=== PATIENT | male | born 1970 ===

== ENCOUNTER 2022-05-01 06:46 | Day surgery (SDC) | payer OTHER | END 2022-05-01 14:10 | disposition home or self-care (01) | LOC: AMB-ENDOS 06:46 | PROVIDERS: ATTEND Surgery | DX: D12.2 Benign neoplasm of ascending colon (principal); K62.5 Hemorrhage of anus and rectum; K57.30 Diverticulosis of large intestine without perforation or abscess without bleeding; K64.4 Residual hemorrhoidal skin tags; I10 Essential (primary) hypertension ==